=== PATIENT | female | born 1995 | race African-American/Black ===

== ENCOUNTER 2018-02-04 14:08 | Emergency (ER) | payer BC ==
[~2018-02-04] VITALS: Ht 149.9 cm; Wt 70.8 kg
--- NOTE | 2018-02-04 14:10 | NUR ---
PRESENTS TO ER C/O LEFT SIDED CHEST TIGHTNESS STARTED 1 HR AGO, LEFT SHOULDER TINGLING. SENSATION STARTED 0730 AM TODAY. A/OX 4. BREATHING EVEN AND UNLABORED. NO SOB, NAD, VITALS STABLE. SAFETY AND COMFORT MEASURES IN PLACE. AWAITING MD ORDERS.
[2018-02-04] MEDS ORDERED: ONDANSETRON 4 MG TAB.RAPDIS ONE (14:41)
[2018-02-04] MEDS: ONDANSETRON 4 MG TAB.RAPDIS SL ONE (14:44)
--- NOTE | 2018-02-04 14:44 | NUR ---
PATIENT MEDICATED PER MD ORDERS, BOATBUILDER APPRENTICE WOOD AT BEDSIDE FOR BLOOD DRAW.
[2018-02-04 14:53] LABS: BASOPHILS % (AUTO) 0.4 % (0.0-2.0); EOSINOPHILS % (AUTO) 3.6 % (0.0-6.0); HEMATOCRIT 35 % (33-45); HEMOGLOBIN 11.6 g/dL (11.5-14.8); LYMPHOCYTES # (AUTO) 2.5 /CMM (0.8-4.8); LYMPHOCYTES % (AUTO) 31.4 % (20.0-44.0); MEAN CORPUSCULAR HGB CONC 33 g/dl (31.0-36.0); MEAN CORPUSCULAR VOLUME 72 fL (82-100); MONOCYTES # (AUTO) 0.8 /CMM (0.1-1.30); MONOCYTES % (AUTO) 9.7 % (2.0-12.0); NEUTROPHILS # (AUTO) 4.2 /CMM (1.8-8.9); NEUTROPHILS % (AUTO) 54.9 % (43.0-81.0); PLATELET COUNT (AUTO) 313 /CMM (150-450); RDW COEFFICIENT OF VARIATION 12.3 (11.5-15.0); RED BLOOD CELL COUNT(AUTO) 4.84 MIL/uL (4.0-5.2); WHITE BLOOD COUNT (AUTO) 7.8 K/uL (4.3-11.0)
[2018-02-04 15:03] LABS: CARBON DIOXIDE 27 mmol/L (21-32); CHLORIDE 103 mmol/L (98-107); CREATININE 0.9 mg/dL (0.6-1.3); GLUCOSE 89 mg/dL (74-106); POTASSIUM 3.9 mmol/L (3.5-5.1); SODIUM SERUM 138 mmol/L (136-145); UREA NITROGEN, BLOOD 13 mg/dL (7-18)
--- NOTE | 2018-02-04 15:03 | NUR ---
WINDOWS SUPPORT ENGINEER AT BEDSIDE.
[2018-02-04 15:07] LABS: INR 0.97 (0.85-1.15)
[2018-02-04 15:09] LABS: ALANINE AMINOTRANSFERASE 22 U/L (12-78); ALBUMIN 4.1 g/dL (3.4-5.0); ALKALINE PHOSPHATASE 79 U/L (46-116); ASPARTATE AMINOTRANSFERASE 22 U/L (15-37); BILIRUBIN,DIRECT 0.1 mg/dL (0.0-0.2); BILIRUBIN,TOTAL 0.2 mg/dL (0.2-1.0); TOTAL PROTEIN, SERUM 8.6 g/dL (6.4-8.2)
[2018-02-04 15:13] LABS: TROPONIN I < 0.017 ng/mL (0.00-0.056)
[2018-02-04] MEDS: HYDROCODONE/APAP 5/325MG 1 EACH TABLET PO ONE (15:15)
[2018-02-04] MEDS ORDERED: HYDROCODONE/APAP 5/325MG 1 EACH TABLET ONE (15:15)
--- NOTE | 2018-02-04 16:05 | NUR ---
Sling provided for patient. Patient discharged to home in stable condition. Written and verbal after care instructions given. Patient verbalizes understanding of instruction.
[2018-02-04 16:06] VITALS: BP 142/68
== END 2018-02-04 16:05 | disposition home or self-care (01) ==
LOC: ER 14:11
DX: R07.89 Other chest pain (principal); M54.10 Radiculopathy, site unspecified; F41.9 Anxiety disorder, unspecified; J45.909 Unspecified asthma, uncomplicated; F10.10 Alcohol abuse, uncomplicated; F12.10 Cannabis abuse, uncomplicated
CPT/HCPCS: 36415; 71045-TC; 80048-TC; 80076-TC; 84484-TC; 85025-TC; 85378-TC; 85730-TC; A4606; Q0162; Z7610